=== PATIENT | female | born 1975 | race Caucasian/White ===

== ENCOUNTER 2019-11-24 16:08 | Emergency (ER) | payer BC ==
[~2019-11-24] VITALS: Ht 170.2 cm; Wt 72.5 kg
[2019-11-24 16:42] LABS: BASO # 0.1 x10^3/uL (0.0-0.2); BASO % 1 % (0-3); EOS # 0.2 x10^3/uL (0.0-0.7); EOS % 3 % (0-3); HEMATOCRIT 38.9 % (36.0-47.0); HEMOGLOBIN 13.6 g/dL (12.0-15.5); LYMPH % 39 % (24-48); MEAN CORPUSCULAR HEMOGLOBIN 32 pg (25-35); MEAN CORPUSCULAR HGB CONC 35 g/dL (31-37); MEAN CORPUSCULAR VOLUME 90 fL (79-100); MONO # 0.5 x10^3/uL (0.0-1.1); MONO % 6 % (0-9); NEUT # 3.9 x10^3/uL (1.8-7.7); NEUT % 51 % (31-73); PLATELET COUNT 330 x10^3/uL (140-400); RED BLOOD COUNT 4.31 x10^6/uL (3.50-5.40); WHITE BLOOD COUNT 7.6 x10^3/uL (4.0-11.0)
[2019-11-24 16:54] LABS: PROTHROMBIN TIME PATIENT 12.6 SEC (11.7-14.0)
[2019-11-24 16:55] LABS: CALCIUM 8.9 mg/dL (8.5-10.1); CREATININE 1.1 mg/dL (0.6-1.0); GFR 54.2; POTASSIUM 3.8 mmol/L (3.5-5.1)
[2019-11-24] MEDS ORDERED: RIVAROXABAN 15 MG TABLET. PO ONE (17:30)
--- NOTE | 2019-11-24 17:42 | PHYS DOC ---
Past Medical History Past Medical History: No Pertinent History Past Surgical History: Other Additional Past Surgical Histo: LIPOMA Smoking Status: Never Smoker Alcohol Use: Occasionally General Adult EDM: Chief Complaint: OTHER COMPLAINTS HPI: HPI: History obtained for the patient. Patient is a 44-year-old female with no reported PMH who presents with chief complaint of abnormal outpatient CAT scan image. Patient states that she does take oral contraceptive pills and have taken it for the past 8 months. She notes she has had increased exertional dyspnea over the past month. She states she went to dog earlier this morning and noted significant dyspnea with minimal activity. Denies chest pain. Denies syncope. Denies swelling in the legs. Denies fevers or cough. States that she was seen at urgent care facility who ordered an outpatient CAT scan image today. She states it was abnormal and reported to the emergency department. Denies tobacco abuse. Denies drug use. Denies recent travel. Denies any history of coagulopathy or bleeding disorders or cancers. No other complaints. Review of Systems: Review of Systems: Constitutional: Denies fever or chills. [] Eyes: Denies change in visual acuity. [] HENT: Denies nasal congestion or sore throat. [] Respiratory: Positive for shortness of breath Cardiovascular: Denies chest pain or edema. [] GI: Denies abdominal pain, nausea, vomiting, bloody stools or diarrhea. [] : Denies dysuria. [] Musculoskeletal: Denies back pain or joint pain. [] Integument: Denies rash. [] Neurologic: Denies headache, focal weakness or sensory changes. [] Endocrine: Denies polyuria or polydipsia. [] Lymphatic: Denies swollen glands. [] Psychiatric: Denies depression or anxiety. [] Heart Score: Risk Factors: Risk Factors: DM, Current or recent (<one month) smoker, HTN, HLP, family history of CAD, obesity. Risk Scores: Score 0 - 3: 2.5% MACE over next 6 weeks - Discharge Home Score 4 - 6: 20.3% MACE over next 6 weeks - Admit for Clinical Observation Score 7 - 10: 72.7% MACE over next 6 weeks - Early Invasive Strategies Current Medications: Current Medications Medications (Trade) Dose Ordered Sig/Lupillo Start Time Stop Time Status Last Admin Dose Admin Rivaroxaban (Xarelto) 15 mg 1X ONCE 11/24/19 17:30 10/9/20 17:31 DC Allergies: Allergies: Allergies Coded Allergies Type Severity Reaction Last Updated Verified No Known Drug Allergies 11/24/19 No Physical Exam: PE: Constitutional: Well developed, well nourished, no acute distress, non-toxic appearance. [] HENT: Normocephalic, atraumatic, bilateral external ears normal, oropharynx moist, no oral exudates, nose normal. [] Eyes: PERRLA, EOMI, conjunctiva normal, no discharge. [] Neck: Normal range of motion, no tenderness, supple, no stridor. [] Cardiovascular:Heart rate regular rhythm, no murmur [] Lungs & Thorax: Bilateral breath sounds clear to auscultation [] Abdomen: soft, no tenderness, no masses, no pulsatile masses. [] Skin: Warm, dry, no erythema, no rash. [] Back: No tenderness, no CVA tenderness. [] Extremities: No tenderness, no cyanosis, no clubbing, ROM intact, no edema. [] Neurologic: Alert and oriented X 3, normal motor function, normal sensory function, no focal deficits noted. [] Psychologic: Affect normal, judgement normal, mood normal. [] Current Patient Data: Labs: Laboratory Tests Test 11/24/19 16:33 White Blood Count 7.6 x10^3/uL (4.0-11.0) Red Blood Count 4.31 x10^6/uL (3.50-5.40) Hemoglobin 13.6 g/dL (12.0-15.5) Hematocrit 38.9 % (36.0-47.0) Mean Corpuscular Volume 90 fL (79-100) Mean Corpuscular Hemoglobin 32 pg (25-35) Mean Corpuscular Hemoglobin Concent 35 g/dL (31-37) Red Cell Distribution Width 12.0 % (11.5-14.5) Platelet Count 330 x10^3/uL (140-400) Neutrophils (%) (Auto) 51 % (31-73) Lymphocytes (%) (Auto) 39 % (24-48) Monocytes (%) (Auto) 6 % (0-9) Eosinophils (%) (Auto) 3 % (0-3) Basophils (%) (Auto) 1 % (0-3) Neutrophils # (Auto) 3.9 x10^3/uL (1.8-7.7) Lymphocytes # (Auto) 3.0 x10^3/uL (1.0-4.8) Monocytes # (Auto) 0.5 x10^3/uL (0.0-1.1) Eosinophils # (Auto) 0.2 x10^3/uL (0.0-0.7) Basophils # (Auto) 0.1 x10^3/uL (0.0-0.2) Prothrombin Time 12.6 SEC (11.7-14.0) Prothrombin Time INR 1.0 (0.8-1.1) Sodium Level 135 mmol/L (136-145) L Potassium Level 3.8 mmol/L (3.5-5.1) Chloride Level 101 mmol/L (98-107) Carbon Dioxide Level 26 mmol/L (21-32) Anion Gap 8 (6-14) Blood Urea Nitrogen 19 mg/dL (7-20) Creatinine 1.1 mg/dL (0.6-1.0) H Estimated GFR (Cockcroft-Gault) 54.2 Glucose Level 92 mg/dL (70-99) Calcium Level 8.9 mg/dL (8.5-10.1) Troponin I Quantitative < 0.017 ng/mL (0.000-0.055) QX-Llw-A-Type Natriuretic Peptide 90 pg/mL (0-124) Laboratory Tests 11/24/19 16:33 Laboratory Tests 11/24/19 16:33 Vital Signs: Vital Signs Date Time Temp Pulse Resp B/P (MAP) Pulse Ox O2 Delivery O2 Flow Rate FiO2 11/24/19 16:19 99.3 65 146/68 (94) 97 99.3 11/24/19 16:12 20 Room Air EKG: EKG: [] EKG consistent with normal sinus rhythm. Ventricular rate of 57 bpm. [place] normal. Intervals normal. No acute ischemic changes appreciated. Radiology/Procedures: Radiology/Procedures: [facility] [address] [place] [address] IMAGING REPORT Signed PATIENT: TANNER LEONG ACCOUNT: [id number] : 1975 LOCATION: CT AGE: 44 SEX: F EXAM STATUS: REG CLI ORD. PHYSICIAN: VAUGHN OLIVARES REASON: POSSITIVE D DIMER PROCEDURE: CT ANGIOGRAPHY CHEST Chest CTA History: Positive d-dimer Technique: After bolus of intravenous contrast, CT imaging was performed of the chest. Multiplanar reconstruction images to include MIP reconstruction images are submitted. Exposure: One or more of the following individualized dose reduction techniques were utilized for this examination: 1. Automated exposure control 2. Adjustment of the mA and/or kV according to patient size 3. Use of iterative reconstruction technique. Comparison: None Findings: There are prominent, multiple bilateral pulmonary emboli greatest of the lower lobes but also seen of the upper lobes, also in the right interlobar artery. There is no pleural or pericardial fluid or pneumothorax. There is no lobar infiltrate. No significantly enlarged nodes are identified of the chest. Thoracic aortic caliber is within normal limits, no intraluminal flap. Impression: 1. There are prominent, multiple, bilateral pulmonary emboli. Critical results were discussed with VAUGHN DIGGS at 11/24/2019 4:01 PM. Electronically signed by: Merari Vizcarra MD (11/24/2019 4:13 PM) [facility] DICTATED and SIGNED BY: MERARI VIZCARRA MD DATE: 11/24/191612 [] Course & Med Decision Making: Course & Med Decision Making Pertinent Labs and Imaging studies reviewed. (See chart for details) [] Patient is a very pleasant 44-year-old female who presents with exertional dyspnea and abnormal outpatient CT imaging of her chest. She was found to have bilateral pulmonary emboli. No signs of right heart strain radiographically. Patient likely developed pulmonary emboli from oral contraceptive use. She is unsure the exact name of the pill however. Troponin negative. proBNP negative. Remainder of labs unremarkable. Patient does have low risk score via PESI and Hestia criteria. 0 points Hestia. 44 points for age PESI. I discussed results of labs imaging in great detail with the patient. She would prefer to take oral anticoagulants at home. Overall I do feel this is reasonable. Her vital signs remained stable. With ambulation her oxygenation remains normal. I did speak with a primary care physician Dr. Juan Arana to arrange close follow-up given she does not have a current primary care physician. This physician states that she can call them Wednesday morning to establish follow-up. I also spoke with the patient's pharmacy and confirmed that the chairez of Xarelto was affordable. Verbal orders given to pharmacist who will fill her order. Patient states that she can afford this. She was given her first dose of 50 mg of Xarelto while in the emergency department. She was given explicit instructions to take the Xarelto 15 mg twice a day for the next 3 weeks. She was instructed report directly to the pharmacy to clam picker her medications. She was instructed not to participate in exertional activity until she has seen her primary care physician. Strict return precautions were discussed and signs and symptoms to monitor for including but not limited to chest pain, shortness of breath, and syncope were given. Patient appropriate for discharge home with close follow- up. Rashida Disclaimer: Rashida Disclaimer: This electronic medical record was generated, in whole or in part, using a voice recognition dictation system. Departure Departure Impression: Primary Impression: Pulmonary emboli Qualified Codes: I26.94 - Multiple subsegmental pulmonary emboli without acute cor pulmonale Disposition: 01 DC HOME SELF CARE/HOMELESS Condition: STABLE Referrals: NO PCP (PCP) JUAN ARANA MD Patient Instructions: Pulmonary Embolus, Rivaroxaban oral tablets Additional Instructions: Please follow-up with physician Juan Arana at the next business day. LEONOR BROOKS DO Nov 24, 2019 17:42
[2019-11-24 17:58] VITALS: BP 139/75
--- NOTE | 2019-11-24 19:08 | EKG ---
[facility] [address] [place] [address] Test Date: 2019-11-24 Test Time: 16:23:10 Pat Name: TANNER LEONG Department: Room: Gender: F Medical Administrative: : 1975 Requested By: LEONOR BROOKS Order Number: [id number] Reading MD: Measurements Intervals [place] Rate: 57 P: 48 TX: 180 QRS: 23 QRSD: 84 T: 42 QT: 418 QTc: 410 Interpretive Statements SINUS RHYTHM NORMAL ECG RI6.02 No previous ECG available for comparison
== END 2019-11-24 18:20 | disposition home or self-care (01) ==
LOC: ER 16:08
DX: I26.94 Multiple subsegmental thrombotic pulmonary emboli without acute cor pulmonale (principal); R06.00 Dyspnea, unspecified; R06.02 Shortness of breath; Z98.890 Other specified postprocedural states
CPT/HCPCS: 36415; 80048; 83880; 84484; 85025; 85610; 93005; 99285

== ENCOUNTER → 2019-11-24 | Outpatient (CLI) | payer BC ==
[~2019-11-24] MED LIST: IOHEXOL 350 MG/ML 100 ML VIAL. IV ONE
--- NOTE | 2019-11-24 16:16 | RAD ---
Chest CTA History: Positive d-dimer Technique: After bolus of intravenous contrast, CT imaging was performed of the chest. Multiplanar reconstruction images to include MIP reconstruction images are submitted. Exposure: One or more of the following individualized dose reduction techniques were utilized for this examination: 1. Automated exposure control 2. Adjustment of the mA and/or kV according to patient size 3. Use of iterative reconstruction technique. Comparison: None Findings: There are prominent, multiple bilateral pulmonary emboli greatest of the lower lobes but also seen of the upper lobes, also in the right interlobar artery. There is no pleural or pericardial fluid or pneumothorax. There is no lobar infiltrate. No significantly enlarged nodes are identified of the chest. Thoracic aortic caliber is within normal limits, no intraluminal flap. Impression: 1. There are prominent, multiple, bilateral pulmonary emboli. Critical results were discussed with VAUGHN DIGGS at 11/24/2019 4:01 PM. Electronically signed by: Chivo Matt MD (11/24/2019 4:13 PM) [facility]
== END ==
LOC: CT 15:01
PROVIDERS: ATTEND Nurse Practitioner Family
DX: R79.89 Other specified abnormal findings of blood chemistry (principal); I26.99 Other pulmonary embolism without acute cor pulmonale; R06.02 Shortness of breath
CPT/HCPCS: 71275; Q9967